=== PATIENT | female | born 1955 | race Caucasian/White ===

== ENCOUNTER 2017-11-15 12:00 | Observation (INO) | payer OTHER ==
--- NOTE | 2017-11-15 12:07 | PDOC ---
History of Present Illness - General History Source: Patient Exam Limitations: No Limitations - History of Present Illness Initial Comments: 11/15/17 12:41 The patient is a 62 year old female, with a significant PMH of obesity, chronic back pain, hypercholesterolemia, hypothyroidism, asthma, diabetes mellitus type 2, depression, anxiety, who presents to the emergency department with an episode chest pain prior to arrival. The patient states that she was standing up when she experienced the chest pain described as intense and radiating to the jaw with associated nausea (denies vomit), shortness of breath, headache and right arm weakness. The patient states the chest pain episode lasted for a couple of minutes before resolving on its own. The patient states she has had similar episodes of intermittent chest pain over the past 4 months for which she has been evaluated by her PCP Dr. Kumari. The patient states she had an echocardiogram which was normal a few weeks ago by her pain management doctor for clearance secondary to her chronic back pain. The patient has an additional complaint of chronic right hip pain, which she states has been progressively worsening lately. She denies any recent falls or injuries. The patient denies any recent palpitations, diaphoresis, lightheadedness, calf swelling or tenderness. Denies fever, chills, vomit, diarrhea and constipation. Denies dysuria, frequency, urgency and hematuria. Allergies: aspirin, penicillins PCP: Dr. Kumari <Sanket Walsh - Last Filed: 11/15/17 13:31> <Cecilia Chatterjee - Last Filed: 11/15/17 15:22> - General Chief Complaint: Chest Pain Stated Complaint: CHEST PAIN Time Seen by Provider: 11/15/17 12:06 Past History <Sanket Walsh - Last Filed: 11/15/17 13:31> - Past Medical History Anemia: No Asthma: No Cancer: No Cardiac Disorders: No CVA: Yes (TIA 2009, ) COPD: No CHF: No Dementia: No Diabetes: Yes (insulin pump) GI Disorders: Yes (ACID REFLUX) Disorders: No HTN: Yes Hypercholesterolemia: Yes Liver Disease: No Seizures: No Thyroid Disease: Yes - Surgical History Abdominal Surgery: No Appendectomy: No Cardiac Surgery: No Cholecystectomy: No Lung Surgery: No Neurologic Surgery: No Orthopedic Surgery: No - Immunization History Immunization Up to Date: No - Suicide/Smoking/Psychosocial Hx Smoking Status: Yes Smoking History: Never smoked Have you smoked in the past 12 months: No Number of Cigarettes Smoked Daily: 0 If you are a former smoker, when did you quit?: 2000 Hx Alcohol Use: No Drug/Substance Use Hx: No Substance Use Type: None Hx Substance Use Treatment: No <Cecilia Chatterjee - Last Filed: 11/15/17 15:22> - Past Medical History Allergies/Adverse Reactions: Allergies Allergy/AdvReac Type Severity Reaction Status Date / Time aspirin Allergy Verified 11/05/15 11:51 Penicillins Allergy Swelling Verified 11/05/15 11:51 Home Medications: Ambulatory Orders Doxepin HCl [Sinequan -] 25 mg PO HS 11/05/15 Ezetimibe [Zetia] 10 mg PO DAILY 11/05/15 Levothyroxine [Synthroid -] 150 mcg PO DAILY 11/05/15 Nebivolol HCl [Bystolic] 10 mg PO DAILY 11/05/15 Prasugrel HCl [Effient] 5 mg PO DAILY 11/05/15 Pregabalin [Lyrica] 75 mg PO TID 11/05/15 Atorvastatin Ca [Lipitor] 20 mg PO HS 11/15/17 Carboxymethylcellulose Sodium [Thera Tears] 1 each OS QID 11/15/17 Ergocalciferol (Vitamin D2) [Vitamin D2] 50,000 unit PO WEEKLY 11/15/17 Insulin Lispro [Humalog] 0 unit SQ 11/15/17 Melatonin 5 mg PO HS 11/15/17 Morphine Sulfate/Naltrexone [Embeda ER 20-0.8 mg Capsule] 1 each PO DAILY Ondansetron HCl 4 mg PO BID 11/15/17 Review of Systems - Review of Systems Comments:: 11/15/17 12:41 GENERAL/CONSTITUTIONAL: No fever or chills. +Right arm weakness. HEAD, EYES, EARS, NOSE AND THROAT: No change in vision. No ear pain or discharge. No sore throat. CARDIOVASCULAR: +Chest pain. +Shortness of breath. RESPIRATORY: No cough, wheezing, or hemoptysis. GASTROINTESTINAL: +Nausea. No vomiting, diarrhea or constipation. GENITOURINARY: No dysuria, frequency, or change in urination. MUSCULOSKELETAL: +Right hip pain. No neck or back pain. SKIN: No rash NEUROLOGIC: +Headache. No vertigo, loss of consciousness, or change in strength/ sensation. ENDOCRINE: No increased thirst. No abnormal weight change. HEMATOLOGIC/LYMPHATIC: No anemia, easy bleeding, or history of blood clots. ALLERGIC/IMMUNOLOGIC: No hives or skin allergy. <Sanket Walsh - Last Filed: 11/15/17 13:31> *Physical Exam - Vital Signs Last Vital Signs Temp Pulse Resp BP Pulse Ox 98.3 F 72 18 149/72 96 11/15/17 12:00 11/15/17 12:00 11/15/17 12:00 11/15/17 12:00 11/15/17 12:00 - Physical Exam Comments: 11/15/17 12:45 GENERAL: Awake, alert, and fully oriented, in no acute distress HEAD: No signs of trauma EYES: PERRLA, EOMI, sclera anicteric, conjunctiva clear ENT: Auricles normal inspection, hearing grossly normal, nares patent, oropharynx clear without exudates. Moist mucosa NECK: Normal ROM, supple, no lymphadenopathy, JVD, or masses LUNGS: Breath sounds equal, clear to auscultation bilaterally. No wheezes, and no crackles HEART: Regular rate and rhythm, normal S1 and S2, no murmurs, rubs or gallops ABDOMEN: Soft, nontender, normoactive bowel sounds. No guarding, no rebound. No masses EXTREMITIES: Normal range of motion, no edema. No clubbing or cyanosis. No cords, erythema, or tenderness NEUROLOGICAL: Cranial nerves II through XII grossly intact. Normal speech, normal gait SKIN: Warm, Dry, normal turgor, no rashes or lesions noted. <Sanket Walsh - Last Filed: 11/15/17 13:31> Heart Score/ECG Review - History History: Moderately suspicious - Electrocardiogram EKG: Normal - Age Age: 45-65 - Risk Factors Risk Factors Heart Score: Yes Hx Hypertension, Yes Hx Diabetes, Yes Hx Obesity Based on the list above the patient has:: >/=3 risk factors or Hx atherosclerotic disease <Cecilia Chatterjee - Last Filed: 11/15/17 15:22> ED Treatment Course - LABORATORY CBC & Chemistry Diagram: 11/15/17 13:10 11/15/17 13:10 - RADIOLOGY Radiograph Interpretation: 11/15/17 13:31 EXAM#: TYPE/EXAM: RESULT: [id number] RAD/CHEST X-RAY PORTABLE* AP portable chest: Chest pain 2 views of the chest have been submitted. Since 04/21/2014, there is no change of an adverse nature no sign of an acute process. There are clear lungs, prominent mediastinum and sharp angles. There are some arthritic spine changes. Impression: No acute pathology. No significant change since 04/21/2014. Reported By: Marc Oneal MD <Sanket Walsh - Last Filed: 11/15/17 13:31> - LABORATORY CBC & Chemistry Diagram: 11/15/17 13:10 11/15/17 13:10 <Cecilia Chatterjee - Last Filed: 11/15/17 15:22> Medical Decision Making - Medical Decision Making 11/15/17 13:14 Pt presents to the ED Complaining of sudden onset chest pain that lasted minutes. Multiple risk factors for cardiovascular disease--heart score is 4 without troponin. EKG shows no evidence of ischemia. Will check labs and likely observe for rule out ACS. <Cecilia Chatterjee - Last Filed: 11/15/17 15:22> *DC/Admit/Observation/Transfer - Attestations Scribe Attestion: 11/15/17 12:42 Documentation prepared by Sanket Walsh, acting as certified medical biller for Cecilia Chatterjee MD. <Sanket Walsh - Last Filed: 11/15/17 13:31> - Discharge Dispostion Decision to Admit order: Yes <Cecilia Chatterjee - Last Filed: 11/15/17 15:22> Diagnosis at time of Disposition: Chest pain Qualifiers: Chest pain type: unspecified Qualified Code(s): R07.9 - Chest pain, unspecified - Discharge Dispostion Condition at time of disposition: Good - Referrals Referrals: Priscila Caba MD [Primary Care Provider] - - Patient Instructions - Post Discharge Activity
[2017-11-15 12:24] VITALS: BMI 36.3
[2017-11-15 13:18] LABS: BASO % 0.8 % (0-2.0); EOS % 3.5 % (0-4.5); HEMATOCRIT 37.8 % (32.4-45.2); HEMOGLOBIN 12.8 GM/dL (10.7-15.3); LYMPH % 34.9 % (8-40); MCHC 33.9 g/dl (32.0-36.0); MEAN CELL VOLUME 91.4 fl (80-96); MEAN PLT VOLUME 11.2 fl (7.5-11.1); NEUT % 54.8 % (42.8-82.8); PLATELET COUNT 150 K/MM3 (134-434); RBC 4.13 M/mm3 (3.60-5.2); RDW 12.6 % (11.6-15.6); WHITE BLOOD COUNT 6.3 K/mm3 (4.0-10.0)
[2017-11-15 13:46] LABS: ALBUMIN 3.6 g/dl (3.4-5.0); ANION GAP 6 (8-16); BILIRUBIN,TOTAL 0.4 mg/dL (0.2-1.0); BLOOD UREA NITROGEN 11 mg/dL (7-18); CALCIUM 8.5 mg/dL (8.5-10.1); CHLORIDE 103 mmol/L (98-107); CO2 26 mmol/L (21-32); CREATININE 1.2 mg/dL (0.55-1.02); POTASSIUM 4.5 mmol/L (3.5-5.1); SGOT/AST 22 U/L (15-37); SGPT/ALT 33 U/L (12-78); SODIUM 135 mmol/L (136-145); TOT PROT 7.7 g/dl (6.4-8.2)
[2017-11-15 13:48] LABS: ALK PHOS 96 U/L (45-117)
[2017-11-15 13:50] LABS: GLUCOSE,RANDOM 340 mg/dL (74-106)
[2017-11-15] MEDS ORDERED: INSULIN REGULAR HUMAN 100 UNITS/ML *VIAL IVPUSH ONE (13:51)
[2017-11-15] MEDS ORDERED: morphine CARPU-JECT 2 MG/1 ML DISP.SYRIN IVPUSH ONE (15:06)
[2017-11-15] MEDS ORDERED: MORPHINE SULFATE 2 MG/ML VIAL ONE (15:14)
--- NOTE | 2017-11-15 15:19 | HP ---
"CHIEF COMPLAINT: Chest pain PCP: Dr. Dela Cruz HISTORY OF PRESENT ILLNESS: 62 year-old female with a PMH significant for HTN, HLD, IDDM, hypothyroidism, obesity, TIA, GERD, chronic low back pain, and depression/anxiety. Patient also states she was once told she had angina but has not taken nitro in years. Patient presents to the ED with an episode chest pain prior to arrival. She was sitting in the clinic for a routine visit when she experienced intense mid- sternal chest pain radiating to the jaw and the right arm. There was associated nausea, shortness of breath, and headache. The pain lasted for a couple of minutes and self-resolved. The patient states she has had similar episodes of intermittent chest pain over the past 4 months for which she has been evaluated by her PCP Dr. Dela Cruz. She had a echocardiagram on 10/26/17. ER course was notable for: (1) Troponin neg x 1 Recent Travel: No PAST MEDICAL HISTORY: Hypertension Hyperlipidemia Angina IDDM Hypothyroidism TIA GERD Chronic low back pain PAST SURGICAL HISTORY: None reported Social History: Smoking: quit 2000 Alcohol: no Drugs: no Family History: Allergies aspirin Allergy (Verified 11/05/15 11:51) Penicillins Allergy (Verified 11/05/15 11:51) Swelling HOME MEDICATIONS: Home Medications Medication Instructions Recorded Doxepin HCl [Sinequan -] 25 mg PO HS 11/05/15 Ezetimibe [Zetia] 10 mg PO DAILY 11/05/15 Levothyroxine [Synthroid -] 150 mcg PO DAILY 11/05/15 Nebivolol HCl [Bystolic] 10 mg PO DAILY 11/05/15 Prasugrel HCl [Effient] 5 mg PO DAILY 11/05/15 Pregabalin [Lyrica] 75 mg PO TID 11/05/15 Atorvastatin Ca [Lipitor] 20 mg PO HS 11/15/17 Carboxymethylcellulose Sodium 1 each OS QID 11/15/17 [Thera Tears] Ergocalciferol (Vitamin D2) 50,000 unit PO WEEKLY 11/15/17 [Vitamin D2] Insulin Lispro [Humalog] 0 unit SQ 11/15/17 Melatonin 5 mg PO HS 11/15/17 Morphine Sulfate/Naltrexone 1 each PO DAILY 11/15/17 [Embeda ER 20-0.8 mg Capsule] Ondansetron HCl 4 mg PO BID 11/15/17 REVIEW OF SYSTEMS CONSTITUTIONAL: Absent: fever, chills, diaphoresis, generalized weakness, malaise, loss of appetite, weight change HEENT: Absent: rhinorrhea, nasal congestion, throat pain, throat swelling, difficulty swallowing, mouth swelling, ear pain, eye pain, visual changes CARDIOVASCULAR: +chest pain, SOB Absent: chest pain, syncope, palpitations, irregular heart rate, lightheadedness , peripheral edema RESPIRATORY: Absent: cough, shortness of breath, dyspnea with exertion, orthopnea, wheezing, stridor, hemoptysis GASTROINTESTINAL: Absent: abdominal pain, abdominal distension, nausea, vomiting, diarrhea, constipation, melena, hematochezia GENITOURINARY: Absent: dysuria, frequency, urgency, hesitancy, hematuria, flank pain, genital pain MUSCULOSKELETAL: Absent: myalgia, arthralgia, joint swelling, back pain, neck pain SKIN: Absent: rash, itching, pallor HEMATOLOGIC/IMMUNOLOGIC: Absent: easy bleeding, easy bruising, lymphadenopathy, frequent infections ENDOCRINE: Absent: unexplained weight gain, unexplained weight loss, heat intolerance, cold intolerance NEUROLOGIC: Absent: headache, focal weakness or paresthesias, dizziness, unsteady gait, seizure, mental status changes, bladder or bowel incontinence PSYCHIATRIC: Absent: anxiety, depression, suicidal or homicidal ideation, hallucinations. PHYSICAL EXAMINATION Vital Signs - 24 hr 11/15/17 12:00 Temperature 98.3 F Pulse Rate 72 Respiratory 18 Rate Blood Pressure 149/72 O2 Sat by Pulse 96 Oximetry (%) GENERAL: Awake, alert, and fully oriented, in no acute distress. HEAD: Normal with no signs of trauma. EYES: Pupils equal, round and reactive to light, extraocular movements intact, sclera anicteric, conjunctiva clear. No lid lag. EARS, NOSE, THROAT: Ears normal, nares patent, oropharynx clear without exudates. Moist mucous membranes. NECK: Normal range of motion, supple without lymphadenopathy, JVD, or masses. LUNGS: Breath sounds equal, clear to auscultation bilaterally. No wheezes, and no crackles. No accessory muscle use. HEART: Regular rate and rhythm, normal S1 and S2 without murmur, rub or gallop. ABDOMEN: Soft, nontender, not distended, normoactive bowel sounds, no guarding, no rebound. MUSCULOSKELETAL: Normal range of motion at all joints. No bony deformities or tenderness. No CVA tenderness. UPPER EXTREMITIES: 2+ pulses, warm, well-perfused. No cyanosis. No clubbing. No peripheral edema. LOWER EXTREMITIES: 2+ pulses, warm, well-perfused. No calf tenderness. Trace bilateral edema. NEUROLOGICAL: Cranial nerves II-XII intact. Normal speech. PSYCHIATRIC: Cooperative. Good eye contact. Appropriate mood and affect. SKIN: Warm, dry, normal turgor Laboratory Results - last 24 hr 11/15/17 11/15/17 13:10 13:10 WBC 6.3 RBC 4.13 Hgb 12.8 Hct 37.8 MCV 91.4 MCH 31.0 MCHC 33.9 RDW 12.6 Plt Count 150 D MPV 11.2 H Absolute Neuts (auto) 3.4 Neutrophils % 54.8 Lymphocytes % 34.9 Monocytes % 6.0 Eosinophils % 3.5 D Basophils % 0.8 Nucleated RBC % 0 Sodium 135 L Potassium 4.5 Chloride 103 Carbon Dioxide 26 Anion Gap 6 L BUN 11 Creatinine 1.2 H Creat Clearance w eGFR 45.37 Random Glucose 340 H* Calcium 8.5 Total Bilirubin 0.4 D AST 22 ALT 33 Alkaline Phosphatase 96 Creatine Kinase 64 Troponin I < 0.02 Total Protein 7.7 Albumin 3.6 ASSESSMENT/PLAN 62 year-old female with a PMH significant for HTN, HLD, IDDM, hypothyroidism, obesity, TIA, GERD, chronic low back pain, and depression/anxiety. Placed on observation for chest pain. Chest pain --cardiac: r/o ACS --first troponin negative, two pending --ECG not suggestive of acute ischemic event --cxr unremarkable --10/26/17 Echo: LV normal; RV normal; mild MR; mild TR; --NPO after midnight in event want to stress tomorrow --Wells score zero, no further workup for PE --GI --h/o GERD, start protonix PO Hypertension --BP stable --continue bystolic Hyperlipidemia --continue Lipitor, Zetia h/o TIA --continue prasugrel --aspirin allergic IDDM --Novolog sliding scale Depression/anxiety --continue doxepin (TCA) Chronic low back pain --Lyrica --hold Embeda ER --ISTOP search (see below) FEN Fluids: PO intake adequate Electrolytes: replete as indicated Nutrition: diabetic, low sodium; NPO after midnight DVT prophylaxis: oob, ambulation Dispo: continues to require observation. Full code. ISTOP This report was requested by: Jennifer Laguerre | Reference #: [id number] Others' Prescriptions Patient Name: Petra Ladd Date: 1955 Address: [address] [place] [address] Sex: Female Rx Written Rx Dispensed Drug Quantity Days Supply Prescriber Name 10/18/2017 10/20/2017 embeda er 20-0.8 mg capsule 30 30 Vlattas, Josh Gray 10/18/2017 10/20/2017 lyrica 75 mg capsule 90 30 Vlattas, Josh Ignaciohen 08/16/2017 08/18/2017 embeda er 20-0.8 mg capsule 30 30 Vlattas, Josh Ignaciohen 08/16/2017 08/18/2017 lyrica 75 mg capsule 90 30 Vlattas, Josh Isaac 07/20/2017 07/22/2017 embeda er 20-0.8 mg capsule 30 30 Vlattas, Josh Ignaciohen 06/15/2017 07/08/2017 lyrica 75 mg capsule 90 30 Vlattas, Josh Ignaciohen 06/15/2017 06/20/2017 embeda er 20-0.8 mg capsule 30 30 Vlattas, Josh Ignaciohen 12/28/2016 06/07/2017 lyrica 75 mg capsule 90 30 Vlattas, Josh Ignaciohen 05/18/2017 05/20/2017 embeda er 20-0.8 mg capsule 30 30 Vlattas, Josh Gray 12/28/2016 05/03/2017 lyrica 75 mg capsule 90 30 Vl[place]as, Josh Ignaciohen 04/19/2017 04/21/2017 embeda er 20-0.8 mg capsule 30 30 Vl[place]as, Josh Gray 01/25/2017 04/04/2017 lyrica 75 mg capsule 90 30 Vlattas, Josh Gray 03/18/2017 03/22/2017 hydromorphone 4 mg tablet 90 23 Vl[place]as, Josh Gray 03/18/2017 03/22/2017 embeda er 20-0.8 mg capsule 30 30 Vlattas, Josh Gray 02/04/2017 03/07/2017 ambien cr 12.5 mg tablet 30 30 Jet Farah MD 01/25/2017 03/03/2017 lyrica 75 mg capsule 90 30 VlattasJosh 02/16/2017 02/17/2017 hydromorphone 4 mg tablet 90 23 Vl[place]as, Josh Gray 02/04/2017 02/08/2017 ambien cr 12.5 mg tablet 30 30 Jet Farah MD 01/25/2017 01/26/2017 hydromorphone 4 mg tablet 60 15 VlattasJosh 01/25/2017 01/26/2017 lyrica 75 mg capsule 90 30 Vl[place]as, Josh Gray 12/28/2016 12/29/2016 lyrica 75 mg capsule 90 30 Vlattas, Josh rGay 12/28/2016 12/29/2016 hydromorphone 4 mg tablet 60 15 VlattasJosh 12/14/2016 12/15/2016 hydromorphone 4 mg tablet 45 12 VlJosh dugan 09/17/2016 12/02/2016 ambien cr 12.5 mg tablet 30 30 Jet Farah MD 12/01/2016 12/02/2016 hydromorphone 4 mg tablet 40 10 Josh Flores 11/17/2016 11/19/2016 hydromorphone 4 mg tablet 40 10 Josh Flores Visit type - Emergency Visit Emergency Visit: Yes ED Registration Date: 11/15/17 Care time: The patient presented to the Emergency Department on the above date and was hospitalized for further evaluation of their emergent condition. - New Patient This patient is new to me today: Yes Date on this admission: 11/16/17 - Critical Care Critical Care patient: No Hospitalist Screening - Colonoscopy Questionnaire Colonoscopy Questionnaire: Colonoscopy Questionnaire - Patient: 50 - 75 years old and never had a screening colonoscopy: Unknown History of colon or rectal polyps, or CA: Unknown History of IBD, Crohn's disease or UC: Unknown History of abdominal radiation therapy as a child: Unknown - Relative: 1 with colon or rectal CA, or polyps at age 60 or younger: Unknown Colon or rectal CA diagnosed at age 45 or younger: Unknown Multiple relatives with colon or rectal CA: Unknown - Outcome: Screening Result: Negative Screen"
[2017-11-15] MEDS ORDERED: INSULIN REGULAR HUMAN 100 UNITS/ML *VIAL ONE (15:20)
[2017-11-15] MEDS ORDERED: INSULIN (NOVOLOG) ASPART 100 UNITS/ML 10ML VIAL ONE (19:51)
[2017-11-15] MEDS ORDERED: PANTOPRAZOLE 40 MG TABLET (FP) ONE (20:25)
[2017-11-15] MEDS: PANTOPRAZOLE 40 MG TABLET (FP) PO SCH (20:46)
[2017-11-15] MEDS ORDERED: DOXEPIN HCL 25 MG CAPSULE PO SCH (22:00)
[2017-11-15] MEDS ORDERED: ATORVASTATIN CA 20 MG TABLET (FP) PO SCH (22:00)
[2017-11-15] MEDS ORDERED: oxyCODONE HCL 5 MG TABLET PO ONE (22:30)
[2017-11-15] MEDS: INSULIN SLIDING SCALE (NOVOLOG) 1 VIAL SQ SCH (22:44)
[2017-11-15] MEDS: PREGABALIN 25 MG CAPSULE PO SCH (22:58)
[2017-11-16] MEDS: ARTIFICIAL TEARS (POLYVINYL ALCOHOL 1.4%) OPTH DROPS OS SCH ×2 (00:13→14:02)
[2017-11-16] MEDS: PREGABALIN 25 MG CAPSULE PO SCH ×2 (05:12→14:00)
[2017-11-16] MEDS: INSULIN SLIDING SCALE (NOVOLOG) 1 VIAL SQ SCH ×2 (06:06→12:00)
[2017-11-16 06:35] LABS: BASO % 0.6 % (0-2.0); EOS % 2.9 % (0-4.5); HEMATOCRIT 36.9 % (32.4-45.2); HEMOGLOBIN 12.5 GM/dL (10.7-15.3); LYMPH % 40.9 % (8-40); MCH 30.9 pg (25.7-33.7); MCHC 33.9 g/dl (32.0-36.0); MEAN CELL VOLUME 91.1 fl (80-96); MEAN PLT VOLUME 11.6 fl (7.5-11.1); NEUT % 50.6 % (42.8-82.8); PLATELET COUNT 160 K/MM3 (134-434); RBC 4.05 M/mm3 (3.60-5.2); RDW 12.8 % (11.6-15.6); WHITE BLOOD COUNT 7.8 K/mm3 (4.0-10.0)
[2017-11-16] MEDS ORDERED: LEVOTHYROXINE NA 150 MCG TABLET PO SCH (07:00)
[2017-11-16 07:02] LABS: CHLORIDE 103 mmol/L (98-107); POTASSIUM 4.1 mmol/L (3.5-5.1); SODIUM 139 mmol/L (136-145)
[2017-11-16 07:15] LABS: ALBUMIN 3.3 g/dl (3.4-5.0); ALK PHOS 73 U/L (45-117); ANION GAP 9 (8-16); BILIRUBIN,TOTAL 0.8 mg/dL (0.2-1.0); BLOOD UREA NITROGEN 11 mg/dL (7-18); CALCIUM 8.5 mg/dL (8.5-10.1); CO2 27 mmol/L (21-32); CREATININE 1.1 mg/dL (0.55-1.02); GLUCOSE,RANDOM 208 mg/dL (74-106); SGOT/AST 34 U/L (15-37); SGPT/ALT 38 U/L (12-78); TOT PROT 7.2 g/dl (6.4-8.2)
--- NOTE | 2017-11-16 07:29 | PN ---
Physical Exam: SUBJECTIVE: Patient seen and examined OBJECTIVE: Vital Signs Period Temp Pulse Resp BP Sys/Stark Pulse Ox Last 24 Hr 97.8 F-98.3 F 66-72 17-18 105-155/48-78 96-99 Laboratory Results - last 24 hr 11/15/17 11/15/17 11/15/17 13:10 13:10 20:26 WBC 6.3 RBC 4.13 Hgb 12.8 Hct 37.8 MCV 91.4 MCH 31.0 MCHC 33.9 RDW 12.6 Plt Count 150 D MPV 11.2 H Absolute Neuts (auto) 3.4 Neutrophils % 54.8 Lymphocytes % 34.9 Monocytes % 6.0 Eosinophils % 3.5 D Basophils % 0.8 Nucleated RBC % 0 Sodium 135 L Potassium 4.5 Chloride 103 Carbon Dioxide 26 Anion Gap 6 L BUN 11 Creatinine 1.2 H Creat Clearance w eGFR 45.37 POC Glucometer Random Glucose 340 H* Calcium 8.5 Total Bilirubin 0.4 D AST 22 ALT 33 Alkaline Phosphatase 96 Creatine Kinase 64 Troponin I < 0.02 < 0.02 Total Protein 7.7 Albumin 3.6 11/15/17 11/16/17 11/16/17 22:41 00:43 05:30 WBC 7.8 RBC 4.05 Hgb 12.5 Hct 36.9 MCV 91.1 MCH 30.9 MCHC 33.9 RDW 12.8 Plt Count 160 MPV 11.6 H Absolute Neuts (auto) 3.9 Neutrophils % 50.6 Lymphocytes % 40.9 H Monocytes % 5.0 Eosinophils % 2.9 Basophils % 0.6 Nucleated RBC % 0 Sodium Potassium Chloride Carbon Dioxide Anion Gap BUN Creatinine Creat Clearance w eGFR POC Glucometer 131 Random Glucose Calcium Total Bilirubin AST ALT Alkaline Phosphatase Creatine Kinase Troponin I < 0.02 Total Protein Albumin 11/16/17 05:39 WBC RBC Hgb Hct MCV MCH MCHC RDW Plt Count MPV Absolute Neuts (auto) Neutrophils % Lymphocytes % Monocytes % Eosinophils % Basophils % Nucleated RBC % Sodium Potassium Chloride Carbon Dioxide Anion Gap BUN Creatinine Creat Clearance w eGFR POC Glucometer 221 Random Glucose Calcium Total Bilirubin AST ALT Alkaline Phosphatase Creatine Kinase Troponin I Total Protein Albumin Active Medications Generic Name Dose Route Start Last Admin Trade Name Freq PRN Reason Stop Dose Admin Artificial Tears 1 drop 11/15/17 18:00 11/16/17 00:13 Artificial Tears OS 1 drop QID MARINA Administration Atorvastatin Calcium 20 mg 11/15/17 22:00 11/15/17 22:57 Lipitor - PO 20 mg HS MARINA Administration Doxepin HCl 25 mg 11/15/17 22:00 11/16/17 00:13 Sinequan - PO 25 mg HS MARINA Administration Ezetimibe 10 mg 11/16/17 10:00 Zetia - PO DAILY MARINA Insulin Aspart 1 vial 11/15/17 16:30 11/16/17 06:06 Novolog Vial Sliding Scale - SQ Not Given ACHS [facility] Protocol Levothyroxine Sodium 150 mcg 11/16/17 07:00 11/16/17 06:06 Synthroid - PO 150 mcg ACBK MARINA Administration Nebivolol 10 mg 11/16/17 10:00 Bystolic - PO DAILY MARINA Pantoprazole Sodium 40 mg 11/15/17 19:45 11/15/17 20:46 Protonix - PO 40 mg DAILY MARINA Administration Prasugrel 5 mg 11/16/17 10:00 Effient - PO DAILY MARINA Pregabalin 75 mg 11/15/17 22:00 11/16/17 05:12 Lyrica - PO 75 mg TID MARINA Administration ASSESSMENT/PLAN 62 year-old female with a PMH significant for HTN, HLD, IDDM, hypothyroidism, obesity, TIA, GERD, chronic low back pain, and depression/anxiety. Placed on observation for chest pain. Chest pain --cardiac: r/o ACS --troponin negative x 3 --ECG not suggestive of acute ischemic event --cxr unremarkable --10/26/17 Echo: LV normal; RV normal; mild MR; mild TR; --stress today --cardiology requested --Wells score zero, no further workup for PE --GI --h/o GERD, continue protonix PO Hypertension --BP stable --continue bystolic Hyperlipidemia --continue Lipitor, Zetia h/o TIA --continue prasugrel --aspirin allergic IDDM --Novolog sliding scale Depression/anxiety --continue doxepin (TCA) Chronic low back pain --Lyrica --hold Embeda ER --ISTOP search (see below) FEN Fluids: PO intake adequate Electrolytes: replete as indicated Nutrition: diabetic, low sodium; NPO after midnight DVT prophylaxis: oob, ambulation Dispo: continues to require observation. Full code.
--- NOTE | 2017-11-16 09:40 | EKG ---
Test Reason : Blood Pressure : / mmHG Vent. Rate : 072 BPM Atrial Rate : 072 BPM P-R Int : 170 ms QRS Dur : 072 ms QT Int : 398 ms P-R-T Axes : 026 016 027 degrees QTc Int : 435 ms NORMAL SINUS RHYTHM NORMAL ECG WHEN COMPARED WITH ECG OF 15-NOV-2017 12:07, NO SIGNIFICANT CHANGE WAS FOUND Confirmed by MALU KRISHNA MD ([id number]) on 11/16/2017 9:40:02 AM Referred By: Manuel ZHONG Confirmed By:MALU KRISHNA MD
[2017-11-16] MEDS ORDERED: REGADENOSON 0.4 MG/5 ML PRE-FILLED SYRINGE IVPUSH ONE ×2 (09:45→11:05)
[2017-11-16] MEDS ORDERED: NEBIVOLOL 10 MG TABLET (FP) PO SCH (10:00)
[2017-11-16] MEDS ORDERED: PRASUGREL HCL 5 MG TAB PO SCH (10:00)
[2017-11-16] MEDS ORDERED: EZETIMIBE 10 MG TABLET (FP) PO SCH (10:00)
[2017-11-16] MEDS: PANTOPRAZOLE 40 MG TABLET (FP) PO SCH (14:01)
--- NOTE | 2017-11-16 14:58 | DS ---
"Physical Exam: SUBJECTIVE: Patient seen and examined at bedside. No further recurrence of chest pain. OBJECTIVE: Vital Signs Period Temp Pulse Resp BP Sys/Stark Pulse Ox Last 24 Hr 97.8 F-98.3 F 66-72 17-18 99-155/48-78 96-99 PHYSICAL EXAM GENERAL: The patient is awake, alert, and fully oriented, in no acute distress. LUNGS: Breath sounds equal, clear to auscultation bilaterally, no wheezes, no crackles, no accessory muscle use. HEART: Regular rate and rhythm, S1, S2 ABDOMEN: Soft, nontender, nondistended EXTREMITIES: 2+ pulses, warm, well-perfused, trace lower extremity bilateral edema NEUROLOGICAL: Cranial nerves II through XII grossly intact. Normal speech, gait not observed. LABS Laboratory Results - last 24 hr 11/15/17 11/15/17 11/16/17 20:26 22:41 00:43 WBC RBC Hgb Hct MCV MCH MCHC RDW Plt Count MPV Absolute Neuts (auto) Neutrophils % Lymphocytes % Monocytes % Eosinophils % Basophils % Nucleated RBC % Sodium Potassium Chloride Carbon Dioxide Anion Gap BUN Creatinine Creat Clearance w eGFR POC Glucometer 131 Random Glucose Calcium Magnesium Total Bilirubin AST ALT Alkaline Phosphatase Troponin I < 0.02 < 0.02 Total Protein Albumin 11/16/17 11/16/17 11/16/17 05:30 05:30 05:39 WBC 7.8 RBC 4.05 Hgb 12.5 Hct 36.9 MCV 91.1 MCH 30.9 MCHC 33.9 RDW 12.8 Plt Count 160 MPV 11.6 H Absolute Neuts (auto) 3.9 Neutrophils % 50.6 Lymphocytes % 40.9 H Monocytes % 5.0 Eosinophils % 2.9 Basophils % 0.6 Nucleated RBC % 0 Sodium 139 Potassium 4.1 Chloride 103 Carbon Dioxide 27 Anion Gap 9 BUN 11 Creatinine 1.1 H Creat Clearance w eGFR 50.17 POC Glucometer 221 Random Glucose 208 H Calcium 8.5 Magnesium 2.0 Total Bilirubin 0.8 D AST 34 ALT 38 Alkaline Phosphatase 73 Troponin I Total Protein 7.2 Albumin 3.3 L 11/16/17 13:20 WBC RBC Hgb Hct MCV MCH MCHC RDW Plt Count MPV Absolute Neuts (auto) Neutrophils % Lymphocytes % Monocytes % Eosinophils % Basophils % Nucleated RBC % Sodium Potassium Chloride Carbon Dioxide Anion Gap BUN Creatinine Creat Clearance w eGFR POC Glucometer 318 Random Glucose Calcium Magnesium Total Bilirubin AST ALT Alkaline Phosphatase Troponin I Total Protein Albumin HOSPITAL COURSE Date of Admission:11/15/17 Date of Discharge: 11/16/17 62 year-old female with a PMH significant for HTN, HLD, IDDM, hypothyroidism, obesity, TIA, GERD, chronic low back pain, and depression/anxiety. Placed on observation for chest pain. Chest pain --cardiac: r/o ACS --troponins negative x 3 --ECG not suggestive of acute ischemic event --cxr unremarkable --10/26/17 Echo: LV normal; RV normal; mild MR; mild TR; --11/16 pharm nuclear stress no ischemia, EF 75% --Wells score zero, no further workup for PE --GI --h/o GERD, gave protonix PO Hypertension --BP stable --continued bystolic Hyperlipidemia --continued Lipitor, Zetia h/o TIA --continued prasugrel; no clear indication why patient is on prasugrel, to be determined as outpatient --aspirin allergic IDDM --Novolog sliding scale Depression/anxiety --continued doxepin Chronic low back pain --Lyrica --held Embeda ER --ISTOP search (see below) ISTOP This report was requested by: Jennifre Laguerre | Reference #: [id number] Others' Prescriptions Patient Name: Petra Ladd Date: 1955 Address: [address] [place] [address] Sex: Female Rx Written Rx Dispensed Drug Quantity Days Supply Prescriber Name 10/18/2017 10/20/2017 embeda er 20-0.8 mg capsule 30 30 Vlattas, Josh Gray 10/18/2017 10/20/2017 lyrica 75 mg capsule 90 30 Vlattas, Josh Gray 08/16/2017 08/18/2017 embeda er 20-0.8 mg capsule 30 30 VlattasJohs 08/16/2017 08/18/2017 lyrica 75 mg capsule 90 30 Vlattas, Josh Gray 07/20/2017 07/22/2017 embeda er 20-0.8 mg capsule 30 30 Vlattas, Josh Gray 06/15/2017 07/08/2017 lyrica 75 mg capsule 90 30 V[place]as, Josh Gray 06/15/2017 06/20/2017 embeda er 20-0.8 mg capsule 30 30 Vlattas, Josh Gray 12/28/2016 06/07/2017 lyrica 75 mg capsule 90 30 Vlattas, Josh Gray 05/18/2017 05/20/2017 embeda er 20-0.8 mg capsule 30 30 Vlattas, Josh Gray 12/28/2016 05/03/2017 lyrica 75 mg capsule 90 30 Vl[place]as, Josh Gray 04/19/2017 04/21/2017 embeda er 20-0.8 mg capsule 30 30 Vlattas, Josh Gray 01/25/2017 04/04/2017 lyrica 75 mg capsule 90 30 Vlattas, Josh Gray 03/18/2017 03/22/2017 hydromorphone 4 mg tablet 90 23 Vlattas, Josh Gray 03/18/2017 03/22/2017 embeda er 20-0.8 mg capsule 30 30 Vlattas, Josh Gray 02/04/2017 03/07/2017 ambien cr 12.5 mg tablet 30 30 Farah, Jet MULLER 01/25/2017 03/03/2017 lyrica 75 mg capsule 90 30 Vlattas, Josh Gray 02/16/2017 02/17/2017 hydromorphone 4 mg tablet 90 23 Vlattas, Josh Gray 02/04/2017 02/08/2017 ambien cr 12.5 mg tablet 30 30 Farah, Jet MULLER 01/25/2017 01/26/2017 hydromorphone 4 mg tablet 60 15 Vlattas, Josh Gray 01/25/2017 01/26/2017 lyrica 75 mg capsule 90 30 Vlattas, Josh Gray 12/28/2016 12/29/2016 lyrica 75 mg capsule 90 30 Vlattas, Josh Gray 12/28/2016 12/29/2016 hydromorphone 4 mg tablet 60 15 Vlattas, Josh Gray 12/14/2016 12/15/2016 hydromorphone 4 mg tablet 45 12 Vlattas, Josh Gray 09/17/2016 12/02/2016 ambien cr 12.5 mg tablet 30 30 FarahJte MD 12/01/2016 12/02/2016 hydromorphone 4 mg tablet 40 10 Vlattas, Josh Gray 11/17/2016 11/19/2016 hydromorphone 4 mg tablet 40 10 Sandra Josh Isaac Minutes to complete discharge: 35 Discharge Summary Reason For Visit: CHEST PAIN Current Active Problems Chest pain (Acute) Condition: Improved - Instructions Diet, Activity, Other Instructions: You should follow up with your primary care provider within one week of your discharge. Return to the emergency department for any new or worsening symptoms. Referrals: Priscila Caba MD [Primary Care Provider] - Disposition: HOME - Home Medications Comprehensive Discharge Medication List: Ambulatory Orders Doxepin HCl [Sinequan -] 25 mg PO HS 11/05/15 Ezetimibe [Zetia] 10 mg PO DAILY 11/05/15 Levothyroxine [Synthroid -] 150 mcg PO DAILY 11/05/15 Nebivolol HCl [Bystolic] 10 mg PO DAILY 11/05/15 Prasugrel HCl [Effient] 5 mg PO DAILY 11/05/15 Pregabalin [Lyrica] 75 mg PO TID 11/05/15 Atorvastatin Ca [Lipitor] 20 mg PO HS 11/15/17 Carboxymethylcellulose Sodium [Thera Tears] 1 each OS QID 11/15/17 Ergocalciferol (Vitamin D2) [Vitamin D2] 50,000 unit PO WEEKLY 11/15/17 Insulin Lispro [Humalog] 0 unit SQ 11/15/17 Melatonin 5 mg PO HS 11/15/17 Morphine Sulfate/Naltrexone [Embeda ER 20-0.8 mg Capsule] 1 each PO DAILY Ondansetron HCl 4 mg PO BID 11/15/17 This patient is new to me today: No Emergency Visit: Yes ED Registration Date: 11/15/17 Care time: The patient presented to the Emergency Department on the above date and was hospitalized for further evaluation of their emergent condition. Critical Care patient: No - Discharge Referral Referred to [facility] No"
[2017-11-16] MEDS ORDERED: oxyCODONE HCL 5 MG TABLET PO ONE (15:00)
[2017-11-16 15:09] VITALS: BP 129/71; PULSE 96; TEMP 98.5
--- NOTE | 2017-11-16 15:52 | CON.CARD ---
Consult Consult Specialty:: Cardiology Referred by:: Hospitalist Reason for Consultation:: Chest pain - History of Present Illness Chief Complaint: Chest pain History of Present Illness: 62 year old woman pmh HLD, DMII, obesity, hypothyroid, depression, anxiety, chronic back pain, admitted with chest pain, sob, headache, R arm pain, gen weakness. States she has had similar episodes in the past. Reports a normal Echo done a few weeks ago. No pnd, orthopnea, or LE edema. No lightheadedness, dizziness, syncope, or near syncope. She reports being on prasugrel at home for blood thinning but denies any history of VT or stent - History Source History Provided By: Patient, Medical Record Limitations to Obtaining History: No Limitations - Past Medical History Cardio/Vascular: Yes: Hyperlipdemia ...: No Endocrine: Yes: Diabetes Mellitus, Hypothyroidism - Alcohol/Substance Use Hx Alcohol Use: No - Smoking History Smoking history: Former smoker Have you smoked in the past 12 months: No Aproximately how many cigarettes per day: 0 If you are a former smoker, when did you quit?: 2000 - Social History ADL: Independent History of Recent Travel: No Home Medications - Allergies Allergies/Adverse Reactions: Allergies Allergy/AdvReac Type Severity Reaction Status Date / Time aspirin Allergy Verified 11/05/15 11:51 Penicillins Allergy Swelling Verified 11/05/15 11:51 - Home Medications Home Medications: Ambulatory Orders Doxepin HCl [Sinequan -] 25 mg PO HS 11/05/15 Ezetimibe [Zetia] 10 mg PO DAILY 11/05/15 Levothyroxine [Synthroid -] 150 mcg PO DAILY 11/05/15 Nebivolol HCl [Bystolic] 10 mg PO DAILY 11/05/15 Prasugrel HCl [Effient] 5 mg PO DAILY 11/05/15 Pregabalin [Lyrica] 75 mg PO TID 11/05/15 Atorvastatin Ca [Lipitor] 20 mg PO HS 11/15/17 Carboxymethylcellulose Sodium [Thera Tears] 1 each OS QID 11/15/17 Ergocalciferol (Vitamin D2) [Vitamin D2] 50,000 unit PO WEEKLY 11/15/17 Insulin Lispro [Humalog] 0 unit SQ 11/15/17 Melatonin 5 mg PO HS 11/15/17 Morphine Sulfate/Naltrexone [Embeda ER 20-0.8 mg Capsule] 1 each PO DAILY Ondansetron HCl 4 mg PO BID 11/15/17 Family Disease History - Family Disease History Family Disease History: Diabetes: Father, Other: Mother (osteoporosis) Review of Systems - Review of Systems Constitutional: reports: Weakness. denies: No Symptoms, Chills, Diaphoresis, Fever, Lethargy, Loss of Appetite, Malaise, Night Sweats, Unintentional Wgt. Loss, Other Eyes: denies: No Symptoms, Blind Spots, Blurred Vision, Double Vision, Eye Pain , Floaters, Photophobia, Recent Change in Vision, Other HENT: denies: No Symptoms, Difficult Swallowing, Ear Discharge, Ear Pain, Epistaxis, Gingival Bleeding, Hearing Loss, Mouth Swelling, Nasal Congestion, Ocular Prosthesis, Throat Pain, Toothache, Ringing in Ears, Other Neck: denies: No Symptoms, Decreased ROM, Lumps, Pain on Movement, Stiffness, Swollen Glands, Tenderness, Other Cardiovascular: reports: Chest Pain, Shortness of Breath. denies: No Symptoms, Edema, Palpitations, Other Respiratory: reports: SOB. denies: No Symptoms, Cough, Exercise Intolerance, Hemoptysis, Orthopnea, PND, Snoring, SOB on Exertion, Wheezing, Other Gastrointestinal: denies: No Symptoms, Abdominal Pain, Bloating, Constipation, Diarrhea, Dysphagia, Indigestion, Melena, Nausea, Rectal Bleeding, Vomiting, Vomiting Blood, Other Genitourinary: denies: No Symptoms, Burning, Discharge, Dysuria, Flank Pain, Frequency, Hematuria, Incontinence, Lesions, Menses, Pain, Testicular Mass, Testicular Pain, Testicular Swelling, Urgency, Vaginal Bleeding, Other Breasts: denies: No Symptoms Reported, See HPI, Breast Implants, Discharge from Nipple, Lumps, Pain, Skin Changes, Other Musculoskeletal: reports: Back Pain, Extremity Pain, Joint Pain. denies: No Symptoms, Crepitus, Decreased ROM, Joint Swelling, Muscle Pain, Muscle Cramps, Muscle Weakness, Other Integumentary: denies: No Symptoms, Blister, Bruising, Change in Color, Eczema, Erythema, Incision, Lesions, Lump, Pallor, Pruritis, Rash, Wound, Other Neurological: denies: No Symptoms, Change in LOC, Change in Speech, Confusion, Dizziness, Headache, Incoordination, Numbness, Parasthesia, Pre-Existing Deficit , Seizure, Syncope, Tremors, Unsteady Gait, Weakness, Other Endocrine: denies: No Symptoms, Excessive Sweating, Flushing, Increased Hunger, Increased Thirst, Intolerance to Cold, Intolerance to Heat, Unexplained Weight Gain, Unexplained Weight Loss, Other Hematology/Lymphatic: denies: No Symptoms, Easily Bruised, Excessive Bleeding, Swollen Glands, Other Psychiatric: denies: No Symptoms, Altered Sleep Pattern, Anxiety, Depression, Hallucinations, Panic, Paranoia, Suicidal, Other - Risk Factors Known Risk Factors: Yes: Diabetes Mellitus, Hypercholesterolemia Vital Signs: Vital Signs Temperature 98.5 F 11/16/17 14:00 Pulse Rate 96 H 11/16/17 14:00 Respiratory Rate 18 11/16/17 09:00 Blood Pressure 129/71 11/16/17 14:00 O2 Sat by Pulse Oximetry (%) 96 11/16/17 09:00 Constitutional: Yes: No Distress, Calm, Obese Eyes: Yes: Conjunctiva Clear, EOM Intact, PERRL HENT: Yes: Atraumatic, Normocephalic Neck: Yes: Supple, Trachea Midline Respiratory: Yes: Regular, CTA Bilaterally. No: Rales, Rhonchi, Wheezes Gastrointestinal: Yes: Normal Bowel Sounds, Soft. No: Distention, Tenderness Cardiovascular: Yes: Regular Rate and Rhythm. No: Bradycardia, Tachycardia, Pulse Irregular, Gallop, Rub, Varicosities JVD: No Carotid Bruit: No PMI: Non-Displaced Heart Sounds: Yes: S1, S2. No: Split S2, S3, S4, Clicks, Gallop, Rub, Bruit Murmur: No: Systolic Murmur, Diastolic Murmur Musculoskeletal: Yes: Muscle Weakness Extremities: Yes: WNL Edema: No Peripheral Pulses WNL: Yes Peripheral Pulses: 2+ Left Doralis Pedis, 2+ Right Dorsalis Pedis Neurological: Yes: Alert, Oriented Psychiatric: Yes: Alert, Oriented - Other Data Labs, Other Data: CBC, BMP 11/16/17 05:30 11/16/17 05:30 Troponin, BNP 11/15/17 11/16/17 20:26 00:43 Troponin I < 0.02 < 0.02 Troponin, BNP 11/15/17 11/16/17 20:26 00:43 Troponin I < 0.02 < 0.02 ekg-nsr 72bpm, no sig ST abnl Echo: Report Reviewed Imaging - Results Chest X-ray: Report Reviewed, Image Reviewed EKG: Report Reviewed, Image Reviewed Other: Report Reviewed, Image Reviewed (tele-NSR, no events recorded) Assessment/Plan 62 year old woman pmh HLD, DMII, obesity, hypothyroid, depression, anxiety, chronic back pain, admitted with chest pain, sob, headache, R arm pain, gen weakness. States she has had similar episodes in the past. Reports a normal Echo done a few weeks ago. Chest pain-atypical, unlikely ACS -EKG showed no ischemia -cardiac enzymes wnl -ECHO 10/26/17-Normal LV systolic function, mild TR, E-A reversal -Pharm nuclear stress 11/16/17-No ischemia LVEF 75% -no arrhythmias on telemetry -no additional inpatient cardiac work up is needed at this time, pt is acceptable for discharge home from a cardiac standpoint with outpatient fup -Need to clarify the indications for Prasugrel as there is no clear indication at this time, this can be determined as outpatient -cont statin and zetia for now Please call with any additional questions.
--- NOTE | 2017-11-17 15:37 | EKG ---
Test Reason : Blood Pressure : / mmHG Vent. Rate : 070 BPM Atrial Rate : 070 BPM P-R Int : 180 ms QRS Dur : 074 ms QT Int : 376 ms P-R-T Axes : 041 024 037 degrees QTc Int : 406 ms NORMAL SINUS RHYTHM NORMAL ECG WHEN COMPARED WITH ECG OF 19-OCT-2017 12:01, NO SIGNIFICANT CHANGE WAS FOUND Confirmed by QI WILLINGHAM MD ([id number]) on 11/17/2017 3:36:48 PM Referred By: Confirmed By:QI WILLINGHAM MD
== END 2017-11-16 17:37 | disposition home or self-care (01) ==
LOC: JER 12:00 → JERBED 15:22 → J4W 22:52
PROVIDERS: ADMIT Internal Medicine; ATTEND Nurse Practitioner Acute Care
PROC: 3E033VG Introduction of Insulin into Peripheral Vein, Percutaneous Approach (ICD-10-PCS; principal; 2017-11-15)
PROC: 3E033NZ Introduction of Analgesics, Hypnotics, Sedatives into Peripheral Vein, Percutaneous Approach (ICD-10-PCS; 2017-11-15)
DX: R07.89 Other chest pain (principal); I10 Essential (primary) hypertension; E78.5 Hyperlipidemia, unspecified; E11.9 Type 2 diabetes mellitus without complications; E03.9 Hypothyroidism, unspecified; E66.9 Obesity, unspecified; M54.5 Low back pain; G89.29 Other chronic pain; J45.909 Unspecified asthma, uncomplicated; F41.9 Anxiety disorder, unspecified; F32.9 Major depressive disorder, single episode, unspecified; K21.9 Gastro-esophageal reflux disease without esophagitis; Z68.36 Body mass index [BMI] 36.0-36.9, adult; Z86.73 Personal history of transient ischemic attack (TIA), and cerebral infarction without residual deficits; Z88.6 Allergy status to analgesic agent; Z88.0 Allergy status to penicillin; Z96.41 Presence of insulin pump (external) (internal)
CPT/HCPCS: 36415; 71045-TC-FY; 78452-TC; 80053; 82550; 82962; 83735; 84484; 85025; 93005; 93010; 93017; 96374; 96375; 99285-25; A9502; G0378; J2785

== ENCOUNTER 2020-12-31 14:42 | Inpatient (IN) | payer MEDICARE, OTHER ==
[2020-12-31] MEDS ORDERED: FAMOTIDINE 20 MG/50 ML IVPB 20 MG/50 ML MG IVPB ONE ×2 (15:50→16:52)
[2020-12-31] MEDS ORDERED: METOCLOPRAMIDE HCL INJECTION 10 MG/2 ML VIAL IVPUSH ONE (15:50)
[2020-12-31] MEDS ORDERED: KETOROLAC TROMETHAMINE 15 MG/ML VIAL IVPUSH ONE ×2 (16:36→23:25)
[2020-12-31] MEDS ORDERED: ACETAMINOPHEN 1000 MG/100 ML VIAL IVPB ONE (16:36)
[2020-12-31] MEDS ORDERED: METOCLOPRAMIDE HCL INJECTION 10 MG/2 ML VIAL ONE (16:51)
[2020-12-31] MEDS ORDERED: ACETAMINOPHEN INJECTION 100 ML IVPB ONE (16:51)
[2020-12-31] MEDS ORDERED: KETOROLAC TROMETHAMINE 15 MG/ML VIAL ONE (16:52)
[2020-12-31 17:20] LABS: EOS % 4.1 % (0-4.5); HEMATOCRIT 32.5 % (32.4-45.2); HEMOGLOBIN 11.1 GM/dL (10.7-15.3); LYMPH % 43.9 % (8-40); MCH 31.7 pg (25.7-33.7); MCHC 34.2 g/dl (32.0-36.0); MEAN CELL VOLUME 92.7 fl (80-96); MEAN PLT VOLUME 10.2 fl (7.5-11.1); MONO % 6.9 % (3.8-10.2); NEUT % 44.1 % (42.8-82.8); PLATELET COUNT 164 10^3/uL (134-434); RBC 3.51 M/mm3 (3.60-5.2); RDW 12.5 % (11.6-15.6); WHITE BLOOD COUNT 6.6 K/mm3 (4.0-10.0)
[2020-12-31 17:39] LABS: ALBUMIN 4.2 g/dl (3.4-5.0); BLOOD UREA NITROGEN 9.6 mg/dL (7-18); CALCIUM 9.6 mg/dL (8.5-10.1)
[2020-12-31 17:40] LABS: MAGNESIUM 2.3 mg/dL (1.8-2.4)
[2020-12-31 17:42] LABS: CREATININE 1.2 mg/dL (0.55-1.3)
[2020-12-31 17:43] LABS: PHOSPHOROUS 4.5 mg/dL (2.5-4.9)
[2020-12-31 17:44] LABS: BILIRUBIN,TOTAL 0.4 mg/dL (0.2-1); TOT PROT 8.4 g/dl (6.4-8.2)
[2020-12-31 17:48] LABS: INR 1.03 (0.83-1.09); PROTHROMBIN TIME (PATIENT) 12.7 SEC (9.7-13.0)
[2020-12-31 17:51] LABS: ACTIVATED PTT 28.3 SECONDS (25.2-36.5)
[2021-01-01] MEDS: LIDOCAINE PATCH REMOVAL MC SCH ×2 (00:22→21:13)
[2021-01-01] MEDS: LIDOCAINE 5% TOPICAL PATCH TP SCH ×2 (00:33→10:20)
[2021-01-01] MEDS: MINERAL OIL ENEMA 133 ML ENEMA RC ONE ×2 (00:34→03:29)
[2021-01-01] MEDS ORDERED: ACETAMINOPHEN 1000 MG/100 ML VIAL IVPB ONE ×2 (01:30→17:20)
[2021-01-01] MEDS ORDERED: LOSARTAN POTASSIUM 25 MG TABLET PO ONE (01:30)
[2021-01-01] MEDS ORDERED: amLODIPine BESYLATE 5 MG TABLET (FP) PO ONE (02:34)
[2021-01-01] MEDS ORDERED: GLYCERIN 1 RECTAL SUPPOSITORY, ADULT RC ONE (02:34)
[2021-01-01] MEDS ORDERED: hydrALAZINE HCL 20 MG/ML VIAL IVPUSH ONE (03:12)
[2021-01-01] MEDS: INSULIN SLIDING SCALE (NOVOLOG) 1 VIAL SQ SCH ×4 (06:06→21:11)
[2021-01-01] MEDS ORDERED: LEVOTHYROXINE 25 MCG, LEVOTHYROXINE 112 MCG PO SCH (07:00)
[2021-01-01] MEDS ORDERED: SODIUM PHOSPHATE/NA BIPHOS 133 ML ENEMA RC ONE (08:00)
[2021-01-01 08:56] LABS: HEMATOCRIT 33.3 % (32.4-45.2); HEMOGLOBIN 11.5 GM/dL (10.7-15.3); MCH 32.2 pg (25.7-33.7); MCHC 34.5 g/dl (32.0-36.0); MEAN CELL VOLUME 93.4 fl (80-96); MEAN PLT VOLUME 10.7 fl (7.5-11.1); PLATELET COUNT 175 10^3/uL (134-434); RBC 3.57 M/mm3 (3.60-5.2); RDW 12.2 % (11.6-15.6)
[2021-01-01 09:16] LABS: CALCIUM 9.2 mg/dL (8.5-10.1)
[2021-01-01 09:17] LABS: BLOOD UREA NITROGEN 7.4 mg/dL (7-18); MAGNESIUM 2.3 mg/dL (1.8-2.4)
[2021-01-01 09:20] LABS: BILIRUBIN,TOTAL 0.5 mg/dL (0.2-1); CREATININE 0.9 mg/dL (0.55-1.3)
[2021-01-01 09:21] LABS: PHOSPHOROUS 4.3 mg/dL (2.5-4.9)
[2021-01-01] MEDS ORDERED: LEVOTHYROXINE NA 25 MCG TABLET (FP) ONE (09:45)
[2021-01-01] MEDS ORDERED: LEVOTHYROXINE NA 112 MCG TABLET (FP) ONE (09:45)
[2021-01-01] MEDS ORDERED: LEVOTHYROXINE NA 112 MCG TABLET (FP) PO SCH (10:00)
[2021-01-01] MEDS ORDERED: NEBIVOLOL 10 MG TABLET (FP) PO SCH (10:00)
[2021-01-01] MEDS: SODIUM CHLORIDE 1,000 ML IV SCH ×2 (10:09→23:09)
[2021-01-01] MEDS: LOSARTAN POTASSIUM 50 MG TABLET PO SCH (10:10)
[2021-01-01] MEDS: ENOXAPARIN NA (PORCINE) 40 MG/0.4 ML DISP.SYRIN SQ SCH (10:20)
[2021-01-01] MEDS: METOCLOPRAMIDE HCL INJECTION 10 MG/2 ML VIAL IVPUSH PRN (10:34)
[2021-01-01] MEDS: NEBIVOLOL 10 MG TABLET (FP) PO SCH (11:28)
[2021-01-01] MEDS: POLYETHYLENE GLYCOL (HEALTHYLAX) 3350 17 GM PACKET PO SCH ×2 (13:08→21:10)
[2021-01-01 14:48] VITALS: BMI 25.2
[2021-01-01] MEDS: oxyCODONE HCL 5 MG TABLET PO PRN (19:37)
[2021-01-02] MEDS: POLYETHYLENE GLYCOL (HEALTHYLAX) 3350 17 GM PACKET PO SCH ×3 (06:19→21:38)
[2021-01-02] MEDS: INSULIN SLIDING SCALE (NOVOLOG) 1 VIAL SQ SCH ×4 (06:19→21:39)
[2021-01-02] MEDS: oxyCODONE HCL 5 MG TABLET PO PRN ×3 (06:20→21:38)
[2021-01-02] MEDS ORDERED: LORazepam 2 MG/ML SDV VIAL IVPUSH ONE (07:30)
[2021-01-02] MEDS ORDERED: ACETAMINOPHEN 1000 MG/100 ML VIAL IVPB PRN (08:07)
[2021-01-02 08:29] LABS: HEMATOCRIT 30.9 % (32.4-45.2); HEMOGLOBIN 10.7 GM/dL (10.7-15.3); MCH 32.1 pg (25.7-33.7); MCHC 34.5 g/dl (32.0-36.0); MEAN PLT VOLUME 10.1 fl (7.5-11.1); PLATELET COUNT 155 10^3/uL (134-434); RBC 3.32 M/mm3 (3.60-5.2); RDW 12.3 % (11.6-15.6); WHITE BLOOD COUNT 6.2 K/mm3 (4.0-10.0)
[2021-01-02 08:46] LABS: CHLORIDE 107 mmol/L (98-107); SODIUM 139 mmol/L (136-145)
[2021-01-02 08:51] LABS: ANION GAP 8 MMOL/L (8-16); BLOOD UREA NITROGEN 8.1 mg/dL (7-18); CALCIUM 8.6 mg/dL (8.5-10.1); CO2 24 mmol/L (21-32); GLUCOSE,RANDOM 108 mg/dL (74-106); MAGNESIUM 2.3 mg/dL (1.8-2.4)
[2021-01-02 08:52] LABS: ALBUMIN 3.6 g/dl (3.4-5.0)
[2021-01-02 08:54] LABS: CREATININE 0.9 mg/dL (0.55-1.3); SGOT/AST 9 U/L (15-37); SGPT/ALT 13 U/L (13-61)
[2021-01-02 08:55] LABS: BILIRUBIN,TOTAL 0.5 mg/dL (0.2-1); PHOSPHOROUS 3.6 mg/dL (2.5-4.9)
[2021-01-02 08:56] LABS: TOT PROT 7.5 g/dl (6.4-8.2)
[2021-01-02 08:57] LABS: ALK PHOS 57 U/L (45-117)
[2021-01-02] MEDS ORDERED: POTASSIUM CHLORIDE TABS 20 MEQ TABLET.ER (FP) PO ONE (09:49)
[2021-01-02] MEDS ORDERED: PT OWN MED DRAWER 7, Y5N ONE (11:18)
[2021-01-02] MEDS: NEBIVOLOL 10 MG TABLET (FP) PO SCH (11:21)
[2021-01-02] MEDS: LEVOTHYROXINE SODIUM 100 MCG VIAL IVPUSH SCH (11:21)
[2021-01-02] MEDS: LOSARTAN POTASSIUM 50 MG TABLET PO SCH (11:22)
[2021-01-02] MEDS: LIDOCAINE 5% TOPICAL PATCH TP SCH (11:22)
[2021-01-02] MEDS: ENOXAPARIN NA (PORCINE) 40 MG/0.4 ML DISP.SYRIN SQ SCH (11:22)
[2021-01-02] MEDS: METOCLOPRAMIDE HCL INJECTION 10 MG/2 ML VIAL IVPUSH PRN (15:02)
[2021-01-02] MEDS: SODIUM CHLORIDE 1,000 ML IV SCH (15:12)
[2021-01-02 18:22] LABS: IRON SERUM 42 ug/dL (50-175)
[2021-01-02 18:23] LABS: TOTAL IRON BINDING CAPACITY 231 ug/dL (250-450)
[2021-01-02] MEDS: LIDOCAINE PATCH REMOVAL MC SCH (21:39)
[2021-01-03] MEDS: oxyCODONE HCL 5 MG TABLET PO PRN ×4 (05:06→23:22)
[2021-01-03] MEDS: POLYETHYLENE GLYCOL (HEALTHYLAX) 3350 17 GM PACKET PO SCH ×3 (05:06→22:25)
[2021-01-03] MEDS: INSULIN SLIDING SCALE (NOVOLOG) 1 VIAL SQ SCH ×4 (06:18→22:25)
[2021-01-03] MEDS: METOCLOPRAMIDE HCL INJECTION 10 MG/2 ML VIAL IVPUSH PRN ×2 (09:02→16:56)
[2021-01-03] MEDS ORDERED: PT OWN MED DRAWER 7, Y5N ONE (09:54)
[2021-01-03] MEDS ORDERED: Methylnaltrexone Bromide 12 MG/0.6 ML KIT SQ SCH (10:00)
[2021-01-03 10:05] LABS: HEMATOCRIT 30.9 % (32.4-45.2); HEMOGLOBIN 10.8 GM/dL (10.7-15.3); MCH 32.4 pg (25.7-33.7); MEAN CELL VOLUME 92.4 fl (80-96); MEAN PLT VOLUME 12.3 fl (7.5-11.1); PLATELET COUNT 127 10^3/uL (134-434); RBC 3.34 M/mm3 (3.60-5.2); RDW 12.4 % (11.6-15.6); WHITE BLOOD COUNT 6.1 K/mm3 (4.0-10.0)
[2021-01-03] MEDS: NEBIVOLOL 10 MG TABLET (FP) PO SCH (10:22)
[2021-01-03 10:25] LABS: CALCIUM 8.3 mg/dL (8.5-10.1)
[2021-01-03 10:26] LABS: ALBUMIN 3.6 g/dl (3.4-5.0); BLOOD UREA NITROGEN 5.8 mg/dL (7-18); MAGNESIUM 2.2 mg/dL (1.8-2.4)
[2021-01-03] MEDS: LOSARTAN POTASSIUM 50 MG TABLET PO SCH (10:27)
[2021-01-03 10:29] LABS: CREATININE 0.8 mg/dL (0.55-1.3); PHOSPHOROUS 3.3 mg/dL (2.5-4.9)
[2021-01-03] MEDS: LIDOCAINE 5% TOPICAL PATCH TP SCH (10:29)
[2021-01-03] MEDS: Methylnaltrexone Bromide 12 MG/0.6 ML KIT SQ SCH (10:30)
[2021-01-03 10:31] LABS: BILIRUBIN,TOTAL 0.4 mg/dL (0.2-1); TOT PROT 7.5 g/dl (6.4-8.2)
[2021-01-03] MEDS: ENOXAPARIN NA (PORCINE) 40 MG/0.4 ML DISP.SYRIN SQ SCH (10:36)
[2021-01-03] MEDS: LEVOTHYROXINE SODIUM 100 MCG VIAL IVPUSH SCH (11:06)
[2021-01-03] MEDS: LIDOCAINE PATCH REMOVAL MC SCH (22:25)
[2021-01-04] MEDS: oxyCODONE HCL 5 MG TABLET PO PRN ×3 (06:59→21:34)
[2021-01-04] MEDS: INSULIN SLIDING SCALE (NOVOLOG) 1 VIAL SQ SCH ×4 (06:59→21:52)
[2021-01-04] MEDS: POLYETHYLENE GLYCOL (HEALTHYLAX) 3350 17 GM PACKET PO SCH ×3 (06:59→21:34)
[2021-01-04] MEDS: METOCLOPRAMIDE HCL INJECTION 10 MG/2 ML VIAL IVPUSH PRN ×2 (06:59→15:23)
[2021-01-04 09:27] LABS: BASO % 0.5 % (0-2.0); EOS % 5.1 % (0-4.5); HEMATOCRIT 30.1 % (32.4-45.2); HEMOGLOBIN 10.7 GM/dL (10.7-15.3); LYMPH % 39.8 % (8-40); MCH 33.1 pg (25.7-33.7); MCHC 35.6 g/dl (32.0-36.0); MEAN CELL VOLUME 92.9 fl (80-96); MEAN PLT VOLUME 10.5 fl (7.5-11.1); MONO % 6.6 % (3.8-10.2); PLATELET COUNT 151 10^3/uL (134-434); RBC 3.24 M/mm3 (3.60-5.2); RDW 11.9 % (11.6-15.6); WHITE BLOOD COUNT 6.5 K/mm3 (4.0-10.0)
[2021-01-04 10:17] LABS: CALCIUM 8.8 mg/dL (8.5-10.1)
[2021-01-04 10:18] LABS: ALBUMIN 3.6 g/dl (3.4-5.0); BLOOD UREA NITROGEN 5.3 mg/dL (7-18); MAGNESIUM 2.2 mg/dL (1.8-2.4)
[2021-01-04 10:21] LABS: CREATININE 0.9 mg/dL (0.55-1.3)
[2021-01-04 10:23] LABS: BILIRUBIN,TOTAL 0.4 mg/dL (0.2-1)
[2021-01-04 10:24] LABS: TOT PROT 7.3 g/dl (6.4-8.2)
[2021-01-04] MEDS: ENOXAPARIN NA (PORCINE) 40 MG/0.4 ML DISP.SYRIN SQ SCH (11:24)
[2021-01-04] MEDS: LIDOCAINE 5% TOPICAL PATCH TP SCH (11:24)
[2021-01-04] MEDS: Methylnaltrexone Bromide 12 MG/0.6 ML KIT SQ SCH (11:25)
[2021-01-04] MEDS: LEVOTHYROXINE SODIUM 100 MCG VIAL IVPUSH SCH (11:26)
[2021-01-04] MEDS: NEBIVOLOL 10 MG TABLET (FP) PO SCH (15:24)
[2021-01-04] MEDS: LOSARTAN POTASSIUM 50 MG TABLET PO SCH (15:25)
[2021-01-04] MEDS ORDERED: LORazepam 2 MG/ML SDV VIAL IVPUSH PRN (20:24)
[2021-01-04] MEDS: LIDOCAINE PATCH REMOVAL MC SCH (22:35)
[2021-01-05] MEDS: METOCLOPRAMIDE HCL INJECTION 10 MG/2 ML VIAL IVPUSH PRN ×3 (02:26→20:36)
[2021-01-05] MEDS: POLYETHYLENE GLYCOL (HEALTHYLAX) 3350 17 GM PACKET PO SCH ×4 (06:26→22:05)
[2021-01-05] MEDS: INSULIN SLIDING SCALE (NOVOLOG) 1 VIAL SQ SCH ×4 (06:35→22:05)
[2021-01-05] MEDS: oxyCODONE HCL 5 MG TABLET PO PRN ×2 (08:04→20:36)
[2021-01-05 10:54] LABS: BASO % 0.8 % (0-2.0); EOS % 4.3 % (0-4.5); HEMATOCRIT 30.2 % (32.4-45.2); HEMOGLOBIN 10.5 GM/dL (10.7-15.3); LYMPH % 35.7 % (8-40); MCH 32.2 pg (25.7-33.7); MCHC 34.9 g/dl (32.0-36.0); MEAN CELL VOLUME 92.1 fl (80-96); MONO % 7.1 % (3.8-10.2); NEUT % 52.1 % (42.8-82.8); PLATELET COUNT 145 10^3/uL (134-434); RBC 3.28 M/mm3 (3.60-5.2); RDW 12.2 % (11.6-15.6); WHITE BLOOD COUNT 6.2 K/mm3 (4.0-10.0)
[2021-01-05] MEDS: ENOXAPARIN NA (PORCINE) 40 MG/0.4 ML DISP.SYRIN SQ SCH (11:06)
[2021-01-05] MEDS: LIDOCAINE 5% TOPICAL PATCH TP SCH (11:07)
[2021-01-05] MEDS: LOSARTAN POTASSIUM 50 MG TABLET PO SCH (11:07)
[2021-01-05 11:14] LABS: ALBUMIN 3.6 g/dl (3.4-5.0); BLOOD UREA NITROGEN 6.2 mg/dL (7-18); CALCIUM 8.5 mg/dL (8.5-10.1)
[2021-01-05 11:15] LABS: MAGNESIUM 2.1 mg/dL (1.8-2.4)
[2021-01-05 11:17] LABS: CREATININE 0.9 mg/dL (0.55-1.3)
[2021-01-05 11:18] LABS: PHOSPHOROUS 4.1 mg/dL (2.5-4.9)
[2021-01-05 11:19] LABS: BILIRUBIN,TOTAL 0.7 mg/dL (0.2-1); TOT PROT 7.5 g/dl (6.4-8.2)
[2021-01-05] MEDS ORDERED: PT OWN MED DRAWER 7, Y5N ONE (12:56)
[2021-01-05] MEDS: NEBIVOLOL 10 MG TABLET (FP) PO SCH (13:02)
[2021-01-05] MEDS: LEVOTHYROXINE SODIUM 100 MCG VIAL IVPUSH SCH (13:03)
[2021-01-05] MEDS: Methylnaltrexone Bromide 12 MG/0.6 ML KIT SQ SCH (17:44)
[2021-01-05] MEDS: LIDOCAINE PATCH REMOVAL MC SCH (22:05)
[2021-01-06 05:26] VITALS: BP 133/70; PULSE 75; TEMP 98
[2021-01-06] MEDS: POLYETHYLENE GLYCOL (HEALTHYLAX) 3350 17 GM PACKET PO SCH ×2 (06:21→15:53)
[2021-01-06] MEDS: oxyCODONE HCL 5 MG TABLET PO PRN (06:21)
[2021-01-06] MEDS: METOCLOPRAMIDE HCL INJECTION 10 MG/2 ML VIAL IVPUSH PRN (06:21)
[2021-01-06] MEDS: INSULIN SLIDING SCALE (NOVOLOG) 1 VIAL SQ SCH ×2 (06:22→11:26)
[2021-01-06] MEDS ORDERED: MULTIVITAMINS (DAILY MVI) TABLET (FP) PO SCH (10:00)
[2021-01-06] MEDS: ENOXAPARIN NA (PORCINE) 40 MG/0.4 ML DISP.SYRIN SQ SCH (11:02)
[2021-01-06] MEDS: LIDOCAINE 5% TOPICAL PATCH TP SCH (11:02)
[2021-01-06] MEDS: NEBIVOLOL 10 MG TABLET (FP) PO SCH (11:02)
[2021-01-06] MEDS: LEVOTHYROXINE SODIUM 100 MCG VIAL IVPUSH SCH (11:02)
[2021-01-06] MEDS: LOSARTAN POTASSIUM 50 MG TABLET PO SCH (11:02)
== END 2021-01-06 13:30 | disposition home or self-care (01) | DRG 74 ==
LOC: JER 14:42 → JERBED 17:49 → J5S 23:41
PROVIDERS: ADMIT Internal Medicine; ATTEND Internal Medicine
DX: E11.43 Type 2 diabetes mellitus with diabetic autonomic (poly)neuropathy (principal); K31.84 Gastroparesis; E03.9 Hypothyroidism, unspecified; I10 Essential (primary) hypertension; K59.00 Constipation, unspecified; K86.9 Disease of pancreas, unspecified; R11.2 Nausea with vomiting, unspecified; K59.03 Drug induced constipation; E11.9 Type 2 diabetes mellitus without complications; E11.40 Type 2 diabetes mellitus with diabetic neuropathy, unspecified; D64.9 Anemia, unspecified
CPT/HCPCS: 36415; 71045-TC-FY; 71250-TC; 74018-TC-FY; 74177-TC; 76856-TC; 80053; 82010; 82105; 82728; 82962; 83540; 83550; 83605; 83615; 83690; 83735; 84100; 84439; 84443; 85025; 85027; 85610; 85651; 85730; 86140; 86301; 86304; 93005; 93010; 97116-GP; 97161-GP; 99285-25; C9803; J0131; Q9967; U0003; U0005

== ENCOUNTER 2021-01-15 14:41 | Inpatient (IN) | payer MEDICARE, OTHER ==
[2021-01-15] MEDS ORDERED: FAMOTIDINE 20 MG/50 ML IVPB 20 MG/50 ML MG IVPB ONE ×2 (16:08→16:37)
[2021-01-15] MEDS ORDERED: ONDANSETRON 4 MG/2 ML VIAL IVPUSH ONE (16:08)
[2021-01-15] MEDS ORDERED: SODIUM CHLORIDE 0.9% 500 ML INFUS.BAG IV ONE ×2 (16:08→19:57)
[2021-01-15] MEDS ORDERED: ONDANSETRON 4 MG/2 ML VIAL ONE (16:37)
[2021-01-15 17:00] LABS: BASO % 0.4 % (0-2.0); EOS % 4.1 % (0-4.5); HEMATOCRIT 30.3 % (32.4-45.2); HEMOGLOBIN 10.5 GM/dL (10.7-15.3); LYMPH % 35.8 % (8-40); MCH 31.8 pg (25.7-33.7); MCHC 34.6 g/dl (32.0-36.0); MEAN CELL VOLUME 92.1 fl (80-96); MEAN PLT VOLUME 9.3 fl (7.5-11.1); MONO % 7.3 % (3.8-10.2); NEUT % 52.4 % (42.8-82.8); PLATELET COUNT 182 10^3/uL (134-434); RBC 3.29 M/mm3 (3.60-5.2); RDW 12.2 % (11.6-15.6); WHITE BLOOD COUNT 6.3 K/mm3 (4.0-10.0)
[2021-01-15] MEDS ORDERED: METOCLOPRAMIDE HCL INJECTION 10 MG/2 ML VIAL IVPUSH ONE (17:13)
[2021-01-15 17:31] LABS: ALBUMIN 3.8 g/dl (3.4-5.0); CALCIUM 8.9 mg/dL (8.5-10.1)
[2021-01-15 17:32] LABS: BLOOD UREA NITROGEN 8.2 mg/dL (7-18); MAGNESIUM 2.2 mg/dL (1.8-2.4)
[2021-01-15 17:34] LABS: CREATININE 0.9 mg/dL (0.55-1.3)
[2021-01-15 17:36] LABS: BILIRUBIN,TOTAL 0.3 mg/dL (0.2-1); TOT PROT 7.8 g/dl (6.4-8.2)
[2021-01-15] MEDS ORDERED: METOCLOPRAMIDE HCL INJECTION 10 MG/2 ML VIAL ONE (17:40)
[2021-01-16] MEDS ORDERED: BISACODYL 10 MG SUPP.RECT PR ONE (00:59)
[2021-01-16] MEDS ORDERED: Methylnaltrexone Bromide 12 MG/0.6 ML KIT SQ ONE ×2 (01:03→22:19)
[2021-01-16] MEDS ORDERED: BISACODYL 10 MG SUPP.RECT ONE (01:13)
[2021-01-16] MEDS ORDERED: KETOROLAC TROMETHAMINE 15 MG/ML VIAL IVPUSH ONE ×2 (02:14→22:01)
[2021-01-16] MEDS ORDERED: KETOROLAC TROMETHAMINE 15 MG/ML VIAL ONE (02:52)
[2021-01-16 06:49] LABS: HEMOGLOBIN 10.6 GM/dL (10.7-15.3); MCH 32.8 pg (25.7-33.7); MCHC 35.4 g/dl (32.0-36.0); MEAN CELL VOLUME 92.9 fl (80-96); PLATELET COUNT 161 10^3/uL (134-434); RBC 3.22 M/mm3 (3.60-5.2); RDW 12.2 % (11.6-15.6); WHITE BLOOD COUNT 6.2 K/mm3 (4.0-10.0)
[2021-01-16 07:06] LABS: CALCIUM 8.3 mg/dL (8.5-10.1)
[2021-01-16 07:07] LABS: BLOOD UREA NITROGEN 6.4 mg/dL (7-18)
[2021-01-16 07:10] LABS: CREATININE 0.9 mg/dL (0.55-1.3); PHOSPHOROUS 3.2 mg/dL (2.5-4.9)
[2021-01-16] MEDS ORDERED: IRON SUCROSE INJECTION 300 MG in SODIUM CHLORIDE 235 ML IVPB ONE (09:00)
[2021-01-16] MEDS ORDERED: METOCLOPRAMIDE HCL INJECTION 10 MG/2 ML VIAL IVPUSH PRN (10:01)
[2021-01-16] MEDS: LIDOCAINE 5% TOPICAL PATCH TP SCH (12:37)
[2021-01-16] MEDS: ENOXAPARIN NA (PORCINE) 40 MG/0.4 ML DISP.SYRIN SQ SCH (12:40)
[2021-01-16] MEDS: SODIUM PHOSPHATE/NA BIPHOS 133 ML ENEMA RC SCH ×2 (12:41→23:26)
[2021-01-16] MEDS: POLYETHYLENE GLYCOL (HEALTHYLAX) 3350 17 GM PACKET PO SCH ×2 (14:11→23:26)
[2021-01-16] MEDS: traMADol HCL 50 MG TABLET PO PRN (18:26)
[2021-01-16] MEDS ORDERED: ACETAMINOPHEN 1000 MG/100 ML VIAL (NON FORMULARY) IVPB ONE (22:51)
[2021-01-16] MEDS: LIDOCAINE PATCH REMOVAL MC SCH (23:27)
[2021-01-17] MEDS: POLYETHYLENE GLYCOL (HEALTHYLAX) 3350 17 GM PACKET PO SCH ×3 (06:15→20:59)
[2021-01-17] MEDS ORDERED: LEVOTHYROXINE NA 112 MCG TABLET (FP) ONE (06:47)
[2021-01-17] MEDS ORDERED: LEVOTHYROXINE NA 25 MCG TABLET (FP) ONE (06:47)
[2021-01-17] MEDS: LEVOTHYROXINE 112 MCG, LEVOTHYROXINE 25 MCG PO SCH (06:48)
[2021-01-17] MEDS ORDERED: LEVOTHYROXINE NA 112 MCG TABLET (FP) PO SCH (07:00)
[2021-01-17] MEDS: traMADol HCL 50 MG TABLET PO PRN (09:50)
[2021-01-17] MEDS: ENOXAPARIN NA (PORCINE) 40 MG/0.4 ML DISP.SYRIN SQ SCH (09:51)
[2021-01-17] MEDS: PREGABALIN 50 MG CAPSULE PO SCH ×2 (09:51→20:59)
[2021-01-17] MEDS: NEBIVOLOL 10 MG TABLET (FP) PO SCH (09:51)
[2021-01-17] MEDS: LOSARTAN POTASSIUM 50 MG TABLET PO SCH (09:51)
[2021-01-17] MEDS: SODIUM PHOSPHATE/NA BIPHOS 133 ML ENEMA RC SCH ×2 (10:03→20:59)
[2021-01-17 11:36] LABS: BASO % 0.6 % (0-2.0); HEMATOCRIT 28.5 % (32.4-45.2); LYMPH % 45.6 % (8-40); MCH 32.8 pg (25.7-33.7); MCHC 35.3 g/dl (32.0-36.0); MEAN CELL VOLUME 93.1 fl (80-96); MEAN PLT VOLUME 10.4 fl (7.5-11.1); MONO % 7.5 % (3.8-10.2); NEUT % 41.3 % (42.8-82.8); PLATELET COUNT 166 10^3/uL (134-434); RBC 3.06 M/mm3 (3.60-5.2); RDW 12.4 % (11.6-15.6); WHITE BLOOD COUNT 5.6 K/mm3 (4.0-10.0)
[2021-01-17 12:14] LABS: CALCIUM 8.6 mg/dL (8.5-10.1)
[2021-01-17 12:15] LABS: ALBUMIN 3.6 g/dl (3.4-5.0); MAGNESIUM 2.4 mg/dL (1.8-2.4)
[2021-01-17 12:18] LABS: CREATININE 0.8 mg/dL (0.55-1.3)
[2021-01-17 12:19] LABS: BILIRUBIN,TOTAL 0.4 mg/dL (0.2-1); TOT PROT 7.2 g/dl (6.4-8.2)
[2021-01-17] MEDS: PANTOPRAZOLE 40 MG TABLET PO SCH (17:52)
[2021-01-17] MEDS: METOCLOPRAMIDE HCL 10 MG TABLET (FP) PO SCH (17:52)
[2021-01-17] MEDS: LIDOCAINE PATCH REMOVAL MC SCH (20:59)
[2021-01-17] MEDS: ATORVASTATIN CA 40 MG TABLET (FP) PO SCH (20:59)
[2021-01-17] MEDS: LIDOCAINE 5% TOPICAL PATCH TP SCH (21:17)
[2021-01-18] MEDS: traMADol HCL 50 MG TABLET PO PRN ×3 (01:44→18:25)
[2021-01-18] MEDS ORDERED: LEVOTHYROXINE NA 112 MCG TABLET (FP) ONE (05:16)
[2021-01-18] MEDS ORDERED: LEVOTHYROXINE NA 25 MCG TABLET (FP) ONE (05:16)
[2021-01-18] MEDS: POLYETHYLENE GLYCOL (HEALTHYLAX) 3350 17 GM PACKET PO SCH ×3 (05:38→21:21)
[2021-01-18] MEDS: LEVOTHYROXINE 112 MCG, LEVOTHYROXINE 25 MCG PO SCH (06:01)
[2021-01-18] MEDS: METOCLOPRAMIDE HCL 10 MG TABLET (FP) PO SCH ×3 (06:01→18:25)
[2021-01-18] MEDS: LIDOCAINE 5% TOPICAL PATCH TP SCH (10:19)
[2021-01-18] MEDS: ENOXAPARIN NA (PORCINE) 40 MG/0.4 ML DISP.SYRIN SQ SCH (10:20)
[2021-01-18] MEDS: PREGABALIN 50 MG CAPSULE PO SCH ×3 (10:21→21:21)
[2021-01-18] MEDS: PANTOPRAZOLE 40 MG TABLET PO SCH (10:22)
[2021-01-18] MEDS: LOSARTAN POTASSIUM 50 MG TABLET PO SCH (10:22)
[2021-01-18] MEDS: NEBIVOLOL 10 MG TABLET (FP) PO SCH (10:22)
[2021-01-18 11:21] LABS: BASO % 0.6 % (0-2.0); EOS % 3.3 % (0-4.5); HEMATOCRIT 30.3 % (32.4-45.2); HEMOGLOBIN 10.6 GM/dL (10.7-15.3); LYMPH % 42.7 % (8-40); MCH 32.9 pg (25.7-33.7); MCHC 35.1 g/dl (32.0-36.0); MEAN CELL VOLUME 93.7 fl (80-96); MEAN PLT VOLUME 10.3 fl (7.5-11.1); MONO % 6.9 % (3.8-10.2); NEUT % 46.5 % (42.8-82.8); PLATELET COUNT 182 10^3/uL (134-434); RBC 3.23 M/mm3 (3.60-5.2); RDW 12.3 % (11.6-15.6); WHITE BLOOD COUNT 6.4 K/mm3 (4.0-10.0)
[2021-01-18 11:38] LABS: CALCIUM 8.5 mg/dL (8.5-10.1)
[2021-01-18 11:39] LABS: ALBUMIN 3.7 g/dl (3.4-5.0); BLOOD UREA NITROGEN 6.3 mg/dL (7-18); MAGNESIUM 2.1 mg/dL (1.8-2.4)
[2021-01-18 11:42] LABS: CREATININE 0.9 mg/dL (0.55-1.3); PHOSPHOROUS 3.4 mg/dL (2.5-4.9)
[2021-01-18 11:44] LABS: BILIRUBIN,TOTAL 0.3 mg/dL (0.2-1); TOT PROT 7.3 g/dl (6.4-8.2)
[2021-01-18 13:35] VITALS: BMI 25.0
[2021-01-18] MEDS: ATORVASTATIN CA 40 MG TABLET (FP) PO SCH (21:21)
[2021-01-18] MEDS: LIDOCAINE PATCH REMOVAL MC SCH (21:22)
[2021-01-19] MEDS: traMADol HCL 50 MG TABLET PO PRN ×2 (03:57→12:02)
[2021-01-19] MEDS ORDERED: LEVOTHYROXINE NA 112 MCG TABLET (FP) ONE (05:55)
[2021-01-19] MEDS ORDERED: LEVOTHYROXINE NA 25 MCG TABLET (FP) ONE (05:55)
[2021-01-19] MEDS: POLYETHYLENE GLYCOL (HEALTHYLAX) 3350 17 GM PACKET PO SCH ×3 (05:59→21:46)
[2021-01-19] MEDS: LEVOTHYROXINE 112 MCG, LEVOTHYROXINE 25 MCG PO SCH (06:00)
[2021-01-19] MEDS: METOCLOPRAMIDE HCL 10 MG TABLET (FP) PO SCH ×3 (06:00→18:21)
[2021-01-19 09:34] LABS: BASO % 0.7 % (0-2.0); HEMATOCRIT 30.3 % (32.4-45.2); HEMOGLOBIN 10.4 GM/dL (10.7-15.3); LYMPH % 46.1 % (8-40); MCH 32.2 pg (25.7-33.7); MCHC 34.2 g/dl (32.0-36.0); MEAN PLT VOLUME 10.8 fl (7.5-11.1); MONO % 7.5 % (3.8-10.2); NEUT % 41.7 % (42.8-82.8); PLATELET COUNT 164 10^3/uL (134-434); RBC 3.23 M/mm3 (3.60-5.2); RDW 12.2 % (11.6-15.6); WHITE BLOOD COUNT 5.7 K/mm3 (4.0-10.0)
[2021-01-19] MEDS ORDERED: PT OWN MED DRAWER 7, Y5N ONE (09:57)
[2021-01-19] MEDS ORDERED: Methylnaltrexone Bromide 12 MG/0.6 ML KIT SQ SCH (10:00)
[2021-01-19] MEDS: LIDOCAINE 5% TOPICAL PATCH TP SCH (10:12)
[2021-01-19] MEDS: LOSARTAN POTASSIUM 50 MG TABLET PO SCH (10:13)
[2021-01-19] MEDS: PREGABALIN 50 MG CAPSULE PO SCH ×2 (10:13→21:46)
[2021-01-19] MEDS: PANTOPRAZOLE 40 MG TABLET PO SCH (10:13)
[2021-01-19] MEDS: NEBIVOLOL 10 MG TABLET (FP) PO SCH (10:14)
[2021-01-19] MEDS: ENOXAPARIN NA (PORCINE) 40 MG/0.4 ML DISP.SYRIN SQ SCH (10:14)
[2021-01-19 10:43] LABS: ALBUMIN 3.7 g/dl (3.4-5.0); BLOOD UREA NITROGEN 6.6 mg/dL (7-18)
[2021-01-19 10:44] LABS: CALCIUM 8.6 mg/dL (8.5-10.1)
[2021-01-19 10:45] LABS: MAGNESIUM 2.4 mg/dL (1.8-2.4)
[2021-01-19 10:48] LABS: CREATININE 0.9 mg/dL (0.55-1.3); PHOSPHOROUS 3.4 mg/dL (2.5-4.9)
[2021-01-19 10:49] LABS: BILIRUBIN,TOTAL 0.4 mg/dL (0.2-1)
[2021-01-19 10:50] LABS: TOT PROT 7.5 g/dl (6.4-8.2)
[2021-01-19] MEDS: ATORVASTATIN CA 40 MG TABLET (FP) PO SCH (21:46)
[2021-01-19] MEDS: LIDOCAINE PATCH REMOVAL MC SCH (21:46)
[2021-01-20] MEDS ORDERED: traMADol HCL 50 MG TABLET PO ONE (00:36)
[2021-01-20] MEDS ORDERED: Methylnaltrexone Bromide 12 MG/0.6 ML KIT SQ ONE ×2 (01:06→06:00)
[2021-01-20] MEDS ORDERED: LEVOTHYROXINE NA 25 MCG TABLET (FP) ONE (05:46)
[2021-01-20] MEDS ORDERED: LEVOTHYROXINE NA 112 MCG TABLET (FP) ONE (05:46)
[2021-01-20] MEDS: LEVOTHYROXINE 112 MCG, LEVOTHYROXINE 25 MCG PO SCH (06:06)
[2021-01-20] MEDS: POLYETHYLENE GLYCOL (HEALTHYLAX) 3350 17 GM PACKET PO SCH ×3 (06:06→21:05)
[2021-01-20] MEDS: METOCLOPRAMIDE HCL 10 MG TABLET (FP) PO SCH ×3 (06:06→16:45)
[2021-01-20] MEDS: ACETAMINOPHEN 1000 MG/100 ML VIAL (NON FORMULARY) IVPB PRN ×2 (06:12→18:00)
[2021-01-20] MEDS ORDERED: DOCUSATE SODIUM 100 MG CAPSULE (FP) PO ONE (09:09)
[2021-01-20] MEDS ORDERED: PT OWN MED DRAWER 7, Y5N ONE (09:14)
[2021-01-20] MEDS: PREGABALIN 50 MG CAPSULE PO SCH ×2 (09:16→21:05)
[2021-01-20] MEDS: PANTOPRAZOLE 40 MG TABLET PO SCH (09:16)
[2021-01-20] MEDS: LOSARTAN POTASSIUM 50 MG TABLET PO SCH (09:16)
[2021-01-20] MEDS: NEBIVOLOL 10 MG TABLET (FP) PO SCH (09:17)
[2021-01-20] MEDS: LIDOCAINE 5% TOPICAL PATCH TP SCH (09:19)
[2021-01-20] MEDS: ENOXAPARIN NA (PORCINE) 40 MG/0.4 ML DISP.SYRIN SQ SCH (09:23)
[2021-01-20] MEDS ORDERED: KETOROLAC TROMETHAMINE 30 MG/1 ML VIAL IM ONE (10:30)
[2021-01-20] MEDS: ATORVASTATIN CA 40 MG TABLET (FP) PO SCH (21:05)
[2021-01-20] MEDS ORDERED: ACETAMINOPHEN 1000 MG/100 ML VIAL (NON FORMULARY) IVPB ONE (23:30)
[2021-01-20] MEDS: LIDOCAINE PATCH REMOVAL MC SCH (23:36)
[2021-01-21] MEDS ORDERED: LEVOTHYROXINE NA 112 MCG TABLET (FP) ONE (05:18)
[2021-01-21] MEDS ORDERED: LEVOTHYROXINE NA 25 MCG TABLET (FP) ONE (05:18)
[2021-01-21] MEDS: METOCLOPRAMIDE HCL 10 MG TABLET (FP) PO SCH ×2 (06:26→12:37)
[2021-01-21] MEDS: POLYETHYLENE GLYCOL (HEALTHYLAX) 3350 17 GM PACKET PO SCH ×2 (06:27→14:08)
[2021-01-21] MEDS: LEVOTHYROXINE 112 MCG, LEVOTHYROXINE 25 MCG PO SCH (06:27)
[2021-01-21] MEDS: LIDOCAINE 5% TOPICAL PATCH TP SCH (08:42)
[2021-01-21 09:03] VITALS: BP 107/65; PULSE 80; TEMP 99.2
[2021-01-21] MEDS ORDERED: ACETAMINOPHEN 325 MG TABLET (FP) PO PRN ×2 (09:09→09:54)
[2021-01-21] MEDS: PANTOPRAZOLE 40 MG TABLET PO SCH ×2 (10:19→12:33)
[2021-01-21] MEDS: LOSARTAN POTASSIUM 50 MG TABLET PO SCH ×3 (10:19→12:43)
[2021-01-21] MEDS: ENOXAPARIN NA (PORCINE) 40 MG/0.4 ML DISP.SYRIN SQ SCH ×2 (10:19→10:24)
[2021-01-21] MEDS: PREGABALIN 50 MG CAPSULE PO SCH ×2 (10:19→12:43)
[2021-01-21] MEDS: NEBIVOLOL 10 MG TABLET (FP) PO SCH ×2 (12:33→12:43)
== END 2021-01-21 15:53 | disposition home or self-care (01) | DRG 74 ==
LOC: JER 14:41 → JERBED 01-16 00:02 → J5S 01-16 09:51
PROVIDERS: ADMIT Internal Medicine
DX: E11.43 Type 2 diabetes mellitus with diabetic autonomic (poly)neuropathy (principal); K86.2 Cyst of pancreas; M06.9 Rheumatoid arthritis, unspecified; K31.84 Gastroparesis; R62.7 Adult failure to thrive; Z68.25 Body mass index [BMI] 25.0-25.9, adult; K21.9 Gastro-esophageal reflux disease without esophagitis; E03.9 Hypothyroidism, unspecified; E78.00 Pure hypercholesterolemia, unspecified; D64.9 Anemia, unspecified; R11.2 Nausea with vomiting, unspecified; E11.42 Type 2 diabetes mellitus with diabetic polyneuropathy; F32.9 Major depressive disorder, single episode, unspecified; D25.9 Leiomyoma of uterus, unspecified; K59.03 Drug induced constipation; T40.2X5A Adverse effect of other opioids, initial encounter; G89.29 Other chronic pain; K29.70 Gastritis, unspecified, without bleeding; Z88.0 Allergy status to penicillin; Z86.73 Personal history of transient ischemic attack (TIA), and cerebral infarction without residual deficits
CPT/HCPCS: 36415; 74018-TC-FY; 80048; 80053; 82607; 82728; 82746; 82962; 83540; 83550; 83690; 83735; 84100; 85025; 85027; 93005; 93010; 99285-25; C9803; J0131; J1756; U0003; U0005